=== PATIENT | male | born 1965 | race African-American/Black ===

== ENCOUNTER 2017-08-19 22:02 | Inpatient (IN) ==
[2017-08-19] MEDS ORDERED: ALBUTEROL NEB INH ONE (22:07)
[2017-08-19] MEDS ORDERED: DUONEB (A & A) INH ONE (22:07)
[2017-08-19] MEDS ORDERED: SOLU-MEDROL IV ONE (22:07)
[2017-08-19 22:20] LABS: BASO% 0.3 % (0.0-0.8); EOS# 0.48 X1000 (0.0-0.7); EOS% 3.5 % (0.0-10.0); HEMATOCRIT 42.5 % (42.0-52.0); IMM GRAN# 0.04 X1000 (0.0-0.04); IMM GRAN% 0.3 % (0.0-0.5); LYMPH# 3.63 X1000 (1.2-3.4); LYMPH% 26.7 % (20.5-51.1); MANUAL DIFF NEEDED? NO; MCH 27.5 PG (27-31); MCHC 32.9 g/dL (33-37); MCV 83.3 FL (81-99); MONO# 1.02 X1000 (0.11-0.59); MONO% 7.5 % (1.7-9.3); NEUT% 61.7 % (42.2-75.2); PLT 228 X1000 (130-400)
--- NOTE | 2017-08-19 22:38 | ED EKG INTERP ---
This chart was entered by Marian Guardado Scribe, acting as scribe for Alejo Brewster MD. EKG Interpretation - EKG Time of EKG reading by physician:: 21:57 EKG Read and Signed by:: Alejo Brewster EKG Interpretation (*Must complete 3 of following elements*): Normal Rate: 94 Rhythm: sinus rhythm with premature atrial complexes [place]: normal QRS: normal ME Interval: normal ST Wave: normal Comments: biatrial enlargement Attestation - Physician/ ANTHONY Attestation Patient care was provided by Advanced Practice Provider:: No The physician spent face to face time with patient:: Yes Advanced Practice Provider documentation review:: Supervising physician onsite and consulted in the evaluation and care of this patient. The physician did have a face to face encounter with the patient. This chart was documented by the indicated scribe, (Marian Guardado Scribe) and accurately reflects the services I performed and decisions made by me, Alejo Noble MD, as attested by the provider's signature.
[2017-08-19 22:42] LABS: AGAP 12; ALBUMIN 4.1 g/dL (3.5-5.0); ALKALINE PHOSPHATASE 80 U/L (32-122); BUN 12 mg/dL (8-22); CALCIUM 9.4 mg/dL (8.8-10.2); CHLORIDE 100 mmol/L (98-107); COSMO 278; GOT 34 U/L (10-34); GPT 17 U/L (10-44); POTASSIUM 4.2 mmol/L (3.5-5.1); SODIUM 139 mmol/L (136-145); TCO2 27 mmol/L (25-35); TOTAL BILIRUBIN 0.23 mg/dL (0.20-1.00)
[2017-08-19 22:43] LABS: URINE CULTURE NEEDED? NO; URINE MICRO REVIEW NEEDED? NO; URINE SOURCE CLEAN CATCH
[2017-08-19 22:49] LABS: BILIRUBIN URINE NEGATIVE (NEGATIVE); BLOOD URINE TRACE (NEGATIVE); COLOR YELLOW; GLUCOSE URINE NEGATIVE (NEGATIVE); LEUKOCYTES URINE NEGATIVE (NEGATIVE); NITRITE URINE NEGATIVE (NEGATIVE); PH URINE 5.5; PROTEIN URINE 30 mg/dL (NEGATIVE); SP GRAVITY URINE 1.022; TURBIDITY URINE CLEAR (CLEAR); UR EPITHELIAL CELLS <10 /HPF (<10); URINE BACTERIA NEGATIVE /HPF; URINE RBC <10 /HPF (<10); URINE WBC <10 /HPF (<10); UROBILINOGEN URINE NORMAL (NORMAL)
--- NOTE | 2017-08-19 23:22 | PROVIDER DOCUMENTATION ---
This chart was entered by Marian Guardado Scribe, acting as scribe for Alejo Brewster MD. HPI-Respiratory General - General Chief Complaint: Shortness of Breath Stated Complaint: SOB Time Seen by Provider: 08/19/17 22:02 Source: patient, EMS Allergies/Adverse Reactions: Patient Allergies Allergy/AdvReac Type Severity Reaction Status Date / Time Penicillins Allergy ITCHING Verified 08/19/17 22:10 Home Medications: Home Medication List Medication Instructions Recorded Confirmed Last Taken Type Albuterol Sulfate [Proair Hfa] 8.5 gm IH PRN PRN 08/19/17 08/19/17 08/19/17 History Budesonide/Formoterol Fumarate 10.2 gm IH PRN PRN 08/19/17 08/19/17 08/19/17 History [Symbicort 160-4.5 Mcg Inhaler] Tiotropium [place] Inhaler 1 puff INH PRN PRN 08/19/17 08/19/17 08/19/17 History [Spiriva] - History of Present Illness-Resp Nature of Presenting Problem: Patient is a 51 year old male who presents in the ED via EMS for dyspnea. Patient states he has increasingly short of breath over the last two days, and states he has a history of COPD and is HIV positive. He also states he smokes 3 to 4 cigarettes weekly, and states he uses home nebulizer treatments. EMS states patient took one albuterol neb treatment 45 minutes prior to their arrival and was given a second albuterol neb en route to the ED. Patient reports he had chest pain last night but none today. Quality of Pain: reports: none Severity in ED: reports: mild, moderate Onset/Duration: reports: abrupt, this evening Timing: reports: still present, changing over time, getting worse Context: denies: recent foreign travel, insect bite (possible tick), recent chemotherapy, multiple patients with similar complaints, recent URI, out of meds , sports/exercise, aspiration/choking, other Exposure: denies: unknown cause, allergen exposure, enviromental allergen exposure, common food allergen exposure, illness exposure, irritant gases exposure, new medication, mold exposure, smoke exposure, toxic exposure, other Cough Quality/Degree: reports: mild, dry cough Episode Frequency: chronic episodes Current Respiratory Medication Therapy: Initiated see nurses note, Initiated albuterol (nebs at home) Modifying Factors: improves with: nothing Associated Symptoms: reports: chest pain/soreness, shortness of breath, short of breath Similar Symptoms Previously?: Yes Recently seen or treated by another doctor?: No Review of Systems - Adult - REVIEW OF SYSTEMS - ADULT Constitutional: reports: no symptoms reported Eyes: reports: no symptoms reported Ears, Nose, Mouth & Throat: reports: no symptoms reported Cardiovascular: reports: no symptoms reported Respiratory: reports: see HPI, shortness of breath Gastrointestinal: reports: no symptoms reported Genitourinary: reports: no symptoms reported Musculoskeletal: reports: no symptoms reported Integumentary: reports: no symptoms reported Neurological: reports: no symptoms reported Psychiatric: reports: no symptoms reported Endocrine: reports: no symptoms reported Hematologic/Lymphatic: reports: no symptoms reported Allergic/Immunologic: reports: no symptoms reported All Other Systems: Reviewed and Negative Past History - Adult - PAST MEDICAL HISTORY-ADULT Review of Records: reports: Nursing Assessment Review, Medications Reviewed Major Childhood Illnesses: reports: denies history Cardiovascular: reports: denies history Respiratory: reports: asthma, bronchitis, COPD Gastrointestinal: reports: denies history Obstetrical/Gynecological: reports: denies history Genitourinary: reports: denies history Musculoskeletal: reports: denies history Neurological: reports: denies history Psychiatric: reports: depression Endocrine/Immune: reports: HIV/AIDS Other Conditions: reports: denies history Additional History: HIV+ - PRIOR SURGERIES/PROCEDURES Surgical/Procedure History: reports: none - PRIOR HOSPITALIZATIONS Prior Hospitalizations: reports: none - IMMUNIZATION STATUS Childhood Immunizations: UTD, See Nurse Assessment Flu Vaccine: See Nurse Assessment - FAMILY HISTORY Family History: reviewed, not pertinent - SOCIAL HISTORY Smoking: cigarettes, less than 1 pack/day (3-4 cigarettes weekly) Substance Use: none/never Alcohol Use Frequency: never Living Situation: alone Physical Exam-General - PHYSICAL EXAM-ADULT Initial Vital Signs Reviewed: Yes - CONSTITUTIONAL General Appearance: alert, mild distress, moderate distress - EYES Eyes: PERRL/EOMI, pink conjunctivae - HEAD, EARS, NOSE, MOUTH & THROAT HENMT: normocephalic/atraumatic, moist mucous membranes - NECK Neck: full range of motion, supple - RESPIRATORY Respiratory: chest non-tender, no pleuratic chest pain, respiratory distress ( mild to moderate distress; tripod position; one-to-two word dyspnea), wheezing ( audible wheezes and throughout all lung riggins) - CARDIOVASCULAR Cardiovascular: regular rate, rhythm, no edema, no gallop, no JVD, no murmur - GASTROINTESTINAL (ABDOMEN) Abdominal Exam: soft, no organomegaly, no pulsatile mass - LYMPHATIC Lymphatic: no adenopathy - MUSCULOSKELETAL Back Exam: normal inspection, no CVA tenderness, no vertebral tenderness Extremity: normal range of motion, non-tender - SKIN Integumentary: normal color, normal turgor, warm/dry - NEUROLOGIC Neurologic: grossly normal, no motor/sensory deficits - PSYCHIATRIC Psych/Mental Status: normal mood/affect, oriented x 3 Progress - PLAN OF CARE/RESULTS Progress/Plan/Lab Results: Vital Signs - 8 hr 08/19/17 22:08 08/19/17 22:22 08/19/17 22:53 Temperature 99.1 F Pulse Rate 91 H 94 H Respiratory Rate 20 23 Blood Pressure 173/131 O2 Sat by Pulse Oximetry 96 96 95 Laboratory Results - last 24 hr 08/19/17 08/19/17 08/19/17 22:11 22:11 22:11 WBC 13.58 H RBC 5.10 Hgb 14.0 Hct 42.5 MCV 83.3 MCH 27.5 MCHC 32.9 L RDW Std Deviation 16.1 H Plt Count 228 MPV 9.0 Immature Gran % (Auto) 0.3 Neut % (Auto) 61.7 Lymph % (Auto) 26.7 [place] % (Auto) 7.5 Eos % (Auto) 3.5 Baso % (Auto) 0.3 Immature Gran # (Auto) 0.04 Neut # (Auto) 8.37 H Lymph # (Auto) 3.63 H [place] # (Auto) 1.02 H Eos # (Auto) 0.48 Baso # (Auto) 0.04 Sodium 139 Potassium 4.2 Chloride 100 Carbon Dioxide 27 Anion Gap 12 BUN 12 Creatinine 1.0 Estimated GFR/1.73 m2 > 60 BUN/Creatinine Ratio 12 Glucose 103 Calculated Osmolality 278 Calcium 9.4 Total Bilirubin 0.23 AST 34 ALT 17 Alkaline Phosphatase 80 Troponin T < 0.010 Total Protein 8.0 Albumin 4.1 Globulin 3.9 Albumin/Globulin Ratio 1.1 Urine Source Urine Color Urine Turbidity Urine pH Ur Specific [place] Urine Protein Ur Glucose (Stick) Ur Ketones (Stick) Urine Blood Urine Nitrite Urine Bilirubin Urobilinogen Dipstick Urine Leukocytes Urine WBC (Auto) Urine RBC (Auto) U Epithel Cells (Auto) Urine Bacteria (Auto) 08/19/17 22:32 WBC RBC Hgb Hct MCV MCH MCHC RDW Std Deviation Plt Count MPV Immature Gran % (Auto) Neut % (Auto) Lymph % (Auto) [place] % (Auto) Eos % (Auto) Baso % (Auto) Immature Gran # (Auto) Neut # (Auto) Lymph # (Auto) [place] # (Auto) Eos # (Auto) Baso # (Auto) Sodium Potassium Chloride Carbon Dioxide Anion Gap BUN Creatinine Estimated GFR/1.73 m2 BUN/Creatinine Ratio Glucose Calculated Osmolality Calcium Total Bilirubin AST ALT Alkaline Phosphatase Troponin T Total Protein Albumin Globulin Albumin/Globulin Ratio Urine Source CLEAN CATCH Urine Color YELLOW Urine Turbidity CLEAR Urine pH 5.5 Ur Specific [place] 1.022 Urine Protein 30 A Ur Glucose (Stick) NEGATIVE Ur Ketones (Stick) NEGATIVE Urine Blood TRACE A Urine Nitrite NEGATIVE Urine Bilirubin NEGATIVE Urobilinogen Dipstick NORMAL Urine Leukocytes NEGATIVE Urine WBC (Auto) <10 Urine RBC (Auto) <10 U Epithel Cells (Auto) <10 Urine Bacteria (Auto) NEGATIVE Orders Category Date Time Status CHEST-PORTABLE [RAD] Stat Exams 08/19/17 22:06 Taken ABG [RESP] Routine Lab 08/19/17 23:02 Ordered CBC WITH ELECTRONIC DIFF [HEME] Stat Lab 08/19/17 22:11 Completed CMP [COMPREHENSIVE METABOLIC PANEL] [CHEM] Stat Lab 08/19/17 22:11 Completed TROPONIN T Stat Lab 08/19/17 22:11 Completed UA NIMS W/REFLEX CULT [URINALYSIS] Stat Lab 08/19/17 22:32 Completed Albuterol 2.5MG/Ipratrop 0.5MG [Duoneb (A & A)] Med 08/19/17 22:07 Discontinued 3 ml INH NOW ONE Albuterol [Albuterol Neb] Med 08/19/17 22:07 Discontinued 5 mg INH NOW ONE Methylprednisolone Sod Succ [Solu-Medrol] Med 08/19/17 22:07 Discontinued 125 mg IV NOW ONE Aerosol Treatments Routine Oth 08/19/17 22:07 Completed Aerosol Treatments Stat Oth 08/19/17 22:07 Completed BIPAP Stat Oth 08/19/17 22:30 Active EKG [EKG] Stat Ther 08/19/17 22:02 Ordered Result Diagrams: 08/19/17 22:11 08/19/17 22:11 - REASSESSMENT Reassessment #1 Time Reassessed: 23:21 (much better on BiPap!) Status: improving - XRAY 1 XRAY Study: Chest XRAY Interpretation: COPD. Departure - Departure Date of Disposition Decision: 08/19/17 Time of Disposition Decision: 23:22 DIAGNOSIS: Acute exacerbation of COPD with asthma Disposition: ADMITTED INPATIENT 09 Certified Medical Emergency: Emergent Condition: Stable Referrals and Follow-Ups: None,PCP [Primary Care Provider] - - Critical Care Note This patient required my direct & personal management of CC.: No Attestation - Physician/ ANTHONY Attestation Patient care was provided by Advanced Practice Provider:: No The physician spent face to face time with patient:: Yes Advanced Practice Provider documentation review:: Supervising physician onsite and consulted in the evaluation and care of this patient. The physician did have a face to face encounter with the patient. This chart was documented by the indicated scribe, (Marian Guardado Scribe) and accurately reflects the services I performed and decisions made by me, Alejo Noble MD, as attested by the provider's signature.
[2017-08-19 23:51] LABS: ALLEN TEST YES; BE 1.5 mmoll (-3.0-3.0); BLOOD TYPE ARTERIAL; DRAW SITE R BRACHIAL; O2(CT) 20.9 mL/dL (15.0-23.0); PO2(98.6) 550 mmHg (60-100); SAMPLE BLOOD; SAO2 100.3 % (95.0-100.0); THB 14.3 g/dL (11.5-17.4)
[2017-08-19 23:52] LABS: MODALITY BI PAP; PCO2(98.6) 60 mmHg (35-45)
--- NOTE | 2017-08-20 00:20 | HISTORY AND PHYSICAL ---
PRIMARY CARE PHYSICIAN: Unknown. CHIEF COMPLAINT: Shortness of breath. HISTORY OF PRESENTING ILLNESS: This is a 51-year-old male with a history of COPD, HIV and ongoing tobacco abuse that presented to the emergency department with 2 days history of worsening shortness of breath. As per family members he was coughing and he was becoming more short of breath. The patient at time of my examination was not really talkative. Most of the history is obtained from family members. However patient able to deny any headache, fever, chills, chest pain, hemoptysis, but complained of shortness of breath. PAST MEDICAL HISTORY: Of COPD, HIV, depression. PAST SURGICAL HISTORY: None. ALLERGIES: Penicillin. CURRENT MEDICATIONS: As listed in the medication reconciliation sheet. SOCIAL HISTORY: 40+ pack years history of smoking. No history of alcohol, history of drug use in the past. FAMILY HISTORY: No history of coronary disease. REVIEW OF SYSTEMS: Twelve point review of systems is as in HPI. Other systems negative. PHYSICAL EXAMINATION: GENERAL: Thin male. He is resting more comfortably now on BiPAP. VITAL SIGNS: Temperature 99.1 degrees, pulse 91, respirations 20, blood pressure 173/131. HEENT: Atraumatic, normocephalic. Extraocular movements intact. PERRLA. NECK: No masses. CHEST: Scattered wheezes. CARDIOVASCULAR: Regular rate and rhythm. ABDOMEN: Soft. Positive bowel sounds. EXTREMITIES: No edema. NEURO: He is awake, arousable. : No bladder distention. SKIN: Warm. LABORATORIES AND STUDIES: WBC 13.58, hemoglobin 14.1, hematocrit 42.5, platelets 228,000, sodium 139, potassium 4.2, chloride 100, CO2 27, BUN is 12, creatinine 1.0, glucose is 103. ASSESSMENT: A 51-year-old male with a history of human immunodeficiency virus and chronic obstructive pulmonary disease had presented emergency department with complaint of several days history of worsening shortness of breath. He was evaluated in the emergency department. Symptoms consistent with chronic obstructive pulmonary disease exacerbation. He was put on BiPAP and he had markedly improvement however due to his presenting symptoms he will need admission for further management. ASSESSMENT: 1. Acute chronic obstructive pulmonary disease exacerbation. 2. History of human immunodeficiency virus. 3. Depression. PLAN: 1. We will admit patient to medical floor with telemetry. 2. We will continue with MARÍA SylvesterMedrol, and BiPAP as needed. 3. Restart his home medications. 4. Put patient on DVT prophylaxis SCD. 5. We will continue to follow and reassess. cc: Adama Davis MD
[2017-08-20] MEDS ORDERED: ZOFRAN IV PRN (01:16)
[2017-08-20] MEDS: LEVAQUIN 500 MG/D5W 500 MG/100 ML IVPB IV SCH (01:54)
[2017-08-20] MEDS: DUONEB (A & A) INH SCH ×6 (03:55→22:59)
[2017-08-20] MEDS: SOLU-MEDROL IV SCH ×3 (05:25→22:21)
[2017-08-20 06:53] LABS: MANUAL DIFF NEEDED? NO
[2017-08-20 06:57] LABS: BASO% 0.1 % (0.0-0.8); EOS# 0.01 X1000 (0.0-0.7); EOS% 0.1 % (0.0-10.0); HEMATOCRIT 42.7 % (42.0-52.0); HEMOGLOBIN 13.7 g/dL (14.0-18.0); LYMPH# 1.34 X1000 (1.2-3.4); LYMPH% 13.9 % (20.5-51.1); MCH 27.1 PG (27-31); MCHC 32.1 g/dL (33-37); MCV 84.4 FL (81-99); MONO# 0.11 X1000 (0.11-0.59); MONO% 1.1 % (1.7-9.3); MPV 9.1 FL (7.4-10.4); NEUT% 84.8 % (42.2-75.2); PLT 235 X1000 (130-400); RBC 5.06 XMIL (4.7-6.1)
[2017-08-20 07:12] LABS: AGAP 9; BUN 13 mg/dL (8-22); CALCIUM 9.6 mg/dL (8.8-10.2); CHLORIDE 100 mmol/L (98-107); COSMO 276; POTASSIUM 4.6 mmol/L (3.5-5.1); SODIUM 137 mmol/L (136-145); TCO2 28 mmol/L (25-35)
--- NOTE | 2017-08-20 09:40 | Diag Imaging Result Doc PS360 ---
EXAM: CHEST-PORTABLE INDICATION: sob TECHNIQUE: One view COMPARISON: 03/22/2016 FINDINGS: The lungs appear somewhat hyperinflated suggesting COPD, stable. The lungs are grossly clear. There is no discrete pleural fluid collection or pneumothorax. The cardiomediastinal silhouette and central vasculature are grossly unremarkable. IMPRESSION: Stable COPD changes. No definite acute pathology. Electronically signed by Дмитрий Matthews 08/20/2017 9:38 AM
--- NOTE | 2017-08-20 16:50 | PROGRESS NOTE ---
DATE: 08/20/2017 SUBJECTIVE: Today Mr. Nelson referred to be doing a lot better. He said that shortness of breath and coughing have significantly improved. He was actually requesting to know when he will be discharged. OBJECTIVE: Vital signs: Blood pressure is 132/77, pulse of 83, respiration is 17, temperature 98.5 degrees. Patient is saturating 97% on 2 L of oxygen. General: Mr. Nelson is a 51-year-old male. He is in bed. He did not seem to be in any remarkable distress. HEENT: Mucosa is pink and moist. Anicteric. Acyanotic. Neck: Supple. Chest: Air entry is bilaterally reduced. There is a diffuse bilateral end expiratory wheezing. There is also some rhonchi and a prolonged expiratory phase of respiration. Cardiovascular: Regular rate and rhythm. There is no murmurs no rubs, no gallops. Abdomen: Soft, nontender. Bowel sounds are present. There is no hepatosplenomegaly. Extremities: No pedal edema. RESIDENTIAL PROGRAM DIRECTOR: Patient is awake and alert and oriented. There is no focal neurological deficit. Extremities: Patient has changes of the nails and the skin which is consistent with onychomycosis possibly related to his underlying HIV. ASSESSMENT: 1. Acute respiratory distress secondary to chronic obstructive pulmonary disease exacerbation. 2. Chronic obstructive pulmonary disease in acute exacerbation. 3. History of HIV. 4. Tobacco abuse. 5. Situational depression. So in general I think Mr. Nelson is doing a lot better. We are going to continue with the nebulization, antibiotic and steroid. He seems to have remarkably improved from yesterday. He is no more using the BiPAP. He is back to his nasal cannula oxygenation and is saturating very well. I think maybe in 24-48 hours Mr. Nelson will be okay for discharge. I did offer him nicotine patch for craving. He said he does not need it at this time. We spent over 15 minutes discussing about the side effects of tobacco and tobacco cessation. cc: David Mueller MD
[2017-08-21] MEDS: LEVAQUIN 500 MG/D5W 500 MG/100 ML IVPB IV SCH (01:39)
[2017-08-21] MEDS: DUONEB (A & A) INH SCH ×3 (03:36→11:46)
[2017-08-21] MEDS: SOLU-MEDROL IV SCH (05:17)
[2017-08-21 07:48] VITALS: BP 134/75
[2017-08-21] MEDS ORDERED: MEDROL DOSEPAK PO SCH (11:15)
[2017-08-21] MEDS ORDERED: MEDROL PO SCH (12:00)
--- NOTE | 2017-08-21 19:18 | DISCHARGE SUMMARY ---
ADMISSION DATE: 08/19/2017 DISCHARGE DATE: 08/21/2017 DISCHARGE DIAGNOSES: 1. Acute hypercapnic respiratory failure secondary to chronic obstructive pulmonary disease exacerbation. 2. Exacerbation. 3. History of human immunodeficiency virus. 4. Situational depression. 5. Tobacco abuse. HOSPITAL COURSE: A 51-year-old, male with a past medical history of COPD, HIV and ongoing tobacco abuse presented to the emergency department and was admitted on 08/19/2017 secondary to worsening shortness of breath that started 2 days prior to the admission. As per the family members, he was coughing and he was becoming more short of breath progressively. On physical exam, he was found to have decreased bowel sounds bilaterally with wheezes. He was admitted with the diagnosis of COPD exacerbation. He was placed on antibiotics. He was placed also on steroids, breathing treatment and oxygen supplementation. This patient was improving on a daily basis, this patient is still smoking and using home oxygen. As per the patient, he is willing to stop smoking. Today, this patient was feeling fine. He was not complaining of shortness of breath. He was coughing less than before and nothing comes up when he coughs. No fever, no chills. He has an appointment with his clinical documentation improvement specialist, Dr. Logan, 09/05/2017. He will be discharged today and he will continue with home oxygen, he will be discharged on antibiotics. He will continue with his breathing treatment and since he was getting steroids here, I will give him a short course of steroids. DISCHARGE EXAMINATION: Vital Signs: Temperature 97.6 degrees, pulse 66, respiratory rate 17, blood pressure 134/75. O2 saturation 99% on 3 L of nasal cannula. HEENT: Head normocephalic. No trauma. PERRLA. Neck: Supple. No JVD. No masses. Central trachea. Chest: Clear to auscultation. Prolonged expiratory phase. No wheezing. No rales. Abdomen: Soft, nontender, nondistended. No hepatosplenomegaly. Extremities: No edema. No clubbing. No cyanosis. Neurological: The patient is alert and oriented x3. No focal neurological deficits. LABORATORY: No lab work done today, but yesterday his lab work was WBC 9.6, hemoglobin 13.7, hematocrit 42.7, platelets of 235,000. Sodium 137, potassium 4.6, chloride 100, bicarbonate 28, BUN 13, creatinine 0.9, glucose 142, calcium 9.6. FOLLOWUP: Follow up with Dr. Logan on 09/05/2017. Also follow up with his primary care doctor and Infectious Disease doctor at [facility]. This patient has been highly advised against tobacco use. He seems to understand and he is willing to stop smoking. DISCHARGE MEDICATIONS: Symbicort 160/4.5 mcg inhaler p.r.n. Spiriva 1 puff inhaler p.r.n. Albuterol sulfate 8.5 g inhaler p.r.n. Medrol Dosepak as directed. Levofloxacin 750 mg p.o. daily for 4 more days. TIME DISCHARGING THIS PATIENT: 35 minutes. cc: Tera Parra MD
--- NOTE | 2017-08-22 06:25 | EKG Report ---
Test Performed on : 08/19/2017 9:57:14 PM Test Reason : SOB Blood Pressure : / mmHG Vent. Rate : 094 BPM Atrial Rate : 094 BPM P-R Int : 114 ms QRS Dur : 072 ms QT Int : 358 ms P-R-T Axes : 090 078 079 degrees QTc Int : 447 ms Sinus rhythm. with premature atrial complexes. Biatrial enlargement Abnormal ECG When compared with ECG of 05-NOV-2016 12:59, premature atrial complexes. are now present Vent. rate has increased BY 35 BPM Nonspecific T wave abnormality no longer evident in Inferior leads Unconfirmed Result
[2017-08-22] MEDS ORDERED: LEVAQUIN PO SCH (09:00)
== END 2017-08-21 12:00 | disposition home or self-care (01) ==
LOC: ED 22:02 → SUATTDRO 22:03 → 3N 22:03
PROVIDERS: ATTEND Internal Medicine